=== PATIENT | female | born 1940 | race Caucasian/White ===

== ENCOUNTER → 2016-11-15 | Outpatient (CLI) | payer MEDICARE ==
[~2016-11-15] MED LIST: ALBU17IN INH; ASPI81TA85 PO; IBUP200C PO; LORA1TAB12 PO; NEXI40CA PO; OPDI1INJ IV; PERCOCET PO; SERT25TA85 PO; SYMB16INH INH; SYMB80AE INH
--- NOTE | 2016-11-15 10:56 | REP ---
Chest x-ray: Two views. History: Abnormal lung findings. Panlobular emphysema. Comparison chest x-ray October 13, 2016. Findings: Post thoracotomy changes are noted on the right including some pleuroparenchymal fibrosis and a suture line in the right mid lung zone. There is blunting of the right lateral pleural angle. Hyperinflation of the lungs again seen overall with increase in the AP diameter of the chest. There is no evidence of pneumothorax or hydrothorax on the left. Heart is not felt to be enlarged. The aorta is calcific and tortuous. Pulmonary vasculature is not increased. There are degenerative changes in the thoracic spine. Impression: Hyperinflation. Post thoracotomy changes on the right. Otherwise no acute disease. Signed by Jose M Allen MD 11/15/2016 01:41 P
== END ==
LOC: M SMT 10:11
PROVIDERS: ATTEND Thoracic Surgery (Cardiothoracic Vascular Surgery)
DX: Z01.818 Encounter for other preprocedural examination (principal); R91.8 Other nonspecific abnormal finding of lung field; J43.1 Panlobular emphysema; Z85.118 Personal history of other malignant neoplasm of bronchus and lung; Z98.890 Other specified postprocedural states; R22.2 Localized swelling, mass and lump, trunk

== ENCOUNTER → 2016-11-15 | Outpatient (CLI) | payer MEDICARE ==
[2016-11-15 13:21] LABS: ABG BASE EXCESS -0.2 (-2.0-2.0); ABG HCO3 23.8 MEQ/L (22.0-26.0); ABG PARTIAL PRESSURE CO2 36.7 mmHg (35.0-45.0); ABG PARTIAL PRESSURE O2 85.5 mmHg (75.0-100.0); ABG STANDARD HCO3 24.3 MEQ/L (22.0-26.0); ABG TOTAL CO2 24.9 MEQ/L (23.0-31.0); ABG pH (ARTERIAL) 7.429 UNITS (7.350-7.450)
[2016-11-15 14:17] LABS: MEAN CORPUSCULAR HEMOGLOBIN 28.4 pg (27.0-33.0); MEAN CORPUSCULAR HGB CONC 32.2 g/dl (32.0-36.5); MEAN CORPUSCULAR VOLUME 88.2 fl (80.0-96.0); RED CELL DISTRIBUTION WIDTH 13.9 % (11.5-14.5); WHITE BLOOD COUNT 6.3 K/mm3 (4.0-10.0)
[2016-11-15 14:18] LABS: BACTERIA, URINE NONE SEEN; HYALINE CAST, URINE NONE SEEN /lpf (0-1); MICROSCOPIC EXAM PERFORMED; MICROSCOPIC INDICATED? MAN YES (NO); RBC, URINE 0-1 /hpf (0-3); SQUAMOUS EPITHELIAL CELL URINE SMALL AMOUNT /hpf (SMALL AMT); WBC, URINE 0-1 /hpf (0-3)
[2016-11-15 14:21] LABS: INR 0.88
[2016-11-15 14:46] LABS: ALBUMIN 3.5 GM/DL (3.2-5.2); ALBUMIN/GLOBULIN RATIO 1.13 (1.00-1.93); ALKALINE PHOSPHATASE 119 U/L (45-117); ALT/SGPT 25 U/L (12-78); ANION GAP 9 MEQ/L (8-16); AST/SGOT 13 U/L (15-37); BILIRUBIN,TOTAL 0.6 MG/DL (0.2-1.0); BLOOD UREA NITROGEN 14 MG/DL (7-18); CALCIUM LEVEL 8.6 MG/DL (8.8-10.2); CARBON DIOXIDE LEVEL 28 MEQ/L (21-32); CHLORIDE LEVEL 106 MEQ/L (98-107); CREATININE FOR GFR 0.76 MG/DL (0.55-1.02); GLOMERULAR FILTRATION RATE > 60.0 (>39); GLUCOSE, FASTING 83 MG/DL (83-110); SODIUM LEVEL 143 MEQ/L (136-145); TOTAL PROTEIN 6.6 GM/DL (6.4-8.2)
== END ==
LOC: M LAB 12:54
PROVIDERS: ATTEND Thoracic Surgery (Cardiothoracic Vascular Surgery)
DX: Z01.818 Encounter for other preprocedural examination (principal); R22.2 Localized swelling, mass and lump, trunk

== ENCOUNTER 2016-11-22 10:55 | Inpatient (IN) | payer MEDICARE ==
[~2016-11-22] VITALS: Ht 162.6 cm; Wt 69.9 kg
[2016-11-22] VITALS (31 sets, daily range): BP systolic 87–119; BP diastolic 50–68
[~2016-11-22 10:55] MED LIST changes: +BUPIVACAINE HCL 0.25% 30 ML VIAL As Ordered ONE; +BUPIVACAINE LIPOSOME/PF 1.3% 20ML (266MG/20ML) VIAL (EXPAREL) As Ordered ONE
[2016-11-22] MEDS ORDERED: ceFAZolin SOD 1 GM in D5W MINI-BAG PLUS 50 ML IV ONE (11:15)
[2016-11-22] MEDS ORDERED: MUPIROCIN 2% OINT 22 GM TUBE TOP SCH (11:15)
[2016-11-22] MEDS ORDERED: LR 1,000 ML IV SCH ×2 (11:15→16:30)
[2016-11-22] MEDS ORDERED: ROCURONIUM BROMIDE 50 MG/5 ML VIAL As Ordered ONE ×2 (11:49→14:43)
[2016-11-22] MEDS ORDERED: LIDOCAINE 2% INJ 100 MG/5 ML SDV (FOR ANES.) As Ordered ONE (11:49)
[2016-11-22] MEDS ORDERED: PROPOFOL 200 MG/20 ML VIAL As Ordered ONE (11:49)
[2016-11-22] MEDS ORDERED: fentaNYL 250 MCG/5 ML INJECTION (J3010) As Ordered ONE (11:50)
[2016-11-22] MEDS ORDERED: MIDAZOLAM INJ 2 MG/2 ML VIAL (J2250) As Ordered ONE ×5 (11:50→20:46)
--- NOTE | 2016-11-22 11:51 | REP ---
CHEST X-RAY PA AND LATERAL: 11/22/2016 CLINICAL HISTORY: Left upper lobe lesion, planning excision. COMPARISON: 11/15/2016, 10/13/2016 chest x-ray, CT chest 08/23/2016. Lungs are quite hyperinflated. Chronic changes are noted with the fibrotic changes, COPD with bullous emphysematous changes mid and upper lung zones, all stable. Some pleural fibrotic change are heavier in the right lateral base on the frontal view. Increased density overlying the anterior clear space partially silhouetted by the ascending aorta corresponding to the location of spiculated lesion on the CT on 08/23/2016. No effusion or definite pneumothorax. Heart, mediastinal and hilar contours along with aorta are all unchanged. No visible pneumothorax, pneumomediastinum. Signed by Raymon Young MD 11/22/2016 02:26 P
[2016-11-22] MEDS ORDERED: BUPIVACAINE HCL 0.25% 30 ML VIAL As Ordered ONE (11:57)
[2016-11-22] MEDS ORDERED: fentaNYL 100 MCG/2 ML INJECTION (J3010) As Ordered ONE (12:38)
[2016-11-22] MEDS ORDERED: MIDAZOLAM INJ 2 MG/2 ML VIAL (J2250) IV ONE ×2 (13:15→21:00)
[2016-11-22] MEDS ORDERED: fentaNYL 100 MCG/2 ML INJECTION (J3010) IV ONE (13:15)
[2016-11-22] MEDS ORDERED: LIDOCAINE 1% MDV 20ML VIAL ONE (13:17)
[2016-11-22] MEDS ORDERED: ePHEDrine SULFATE 25 MG/5 ML(5MG/ML) SYRINGE As Ordered ONE (14:29)
[2016-11-22] MEDS ORDERED: GLYCOPYRROLATE INJ 0.2 MG/ML 2 ML VIAL As Ordered ONE (15:17)
[2016-11-22] MEDS ORDERED: ONDANSETRON 4MG/2ML VIAL (J2405) As Ordered ONE (15:17)
[2016-11-22] MEDS ORDERED: NEOSTIGMINE 1MG/ML 5 ML SYRINGE (J2710) As Ordered ONE (15:17)
[2016-11-22] MEDS ORDERED: BUPIVACAINE HCL 0.5% 30 ML VIAL XX ONE (15:32)
[2016-11-22] MEDS ORDERED: MUPIROCIN 2% OINT 22 GM TUBE XX ONE (15:32)
[2016-11-22] MEDS ORDERED: BUPIVACAINE LIPOSOME/PF 1.3% 20ML (266MG/20ML) VIAL (EXPAREL) XX ONE (15:32)
[2016-11-22] MEDS ORDERED: KETOROLAC 30 MG/ML VIAL (J1885) As Ordered ONE (15:55)
[2016-11-22] MEDS ORDERED: FENTANYL 2MCG/ML BUPIVACAINE 0.0625% NACL 250ML CADD As Ordered ONE (15:56)
[2016-11-22] MEDS ORDERED: NORCO, ANEXSIA 5/325MG TABLET (HYDROcodone/ACETAMINOPHEN) PO PRN (16:00)
[2016-11-22] MEDS ORDERED: LEVALBUTEROL 1.25 MG/0.5 ML CONCENTRATE NEB NEB PRN (16:00)
[2016-11-22] MEDS ORDERED: PERCOCET 5MG/325MG TAB PO PRN ×2 (16:00)
[2016-11-22] MEDS ORDERED: ONDANSETRON 4MG/2ML VIAL (J2405) IV PRN ×3 (16:00→16:30)
[2016-11-22] MEDS ORDERED: BISACODYL 10 MG SUPP PR PRN (16:00)
[2016-11-22] MEDS ORDERED: NALOXONE INJ 0.4 MG/1 ML VIAL (J2310) IV PRN (16:15)
[2016-11-22] MEDS ORDERED: METOCLOPRAMIDE INJ 10MG/2ML VIAL (J2765) IV PRN (16:15)
[2016-11-22] MEDS ORDERED: diphenhydrAMINE INJ 50MG/ML VIAL (J1200) IV PRN (16:15)
[2016-11-22] MEDS ORDERED: EPIDURAL/PCA KEYS XX PRN (16:15)
[2016-11-22] MEDS ORDERED: WALLBOXKEY XX PRN (16:15)
[2016-11-22] MEDS ORDERED: fentaNYL 100 MCG/2 ML INJECTION (J3010) IV PRN (16:30)
[2016-11-22 16:37] LABS: ABG BASE EXCESS -1.9 (-2.0-2.0); ABG HCO3 25.4 MEQ/L (22.0-26.0); ABG PARTIAL PRESSURE CO2 53.4 mmHg (35.0-45.0); ABG PARTIAL PRESSURE O2 109.7 mmHg (75.0-100.0); ABG STANDARD HCO3 22.9 MEQ/L (22.0-26.0); ABG pH (ARTERIAL) 7.295 UNITS (7.350-7.450)
[2016-11-22 16:47] LABS: BASO # 0.1 K/mm3 (0.0-0.2); BASO % 1.2 % (0.0-1.0); EOS # 0.1 K/mm3 (0.0-0.50); EOS % 1.2 % (0.0-3.0); LARGE UNSTAINED CELL # 0.1 K/mm3 (0.0-0.4); LARGE UNSTAINED CELL % 1.1 % (0.0-4.0); LYMPH # 0.7 K/mm3 (1.5-4.5); LYMPH % 6.1 % (24.0-44.0); MEAN CORPUSCULAR HEMOGLOBIN 29.2 pg (27.0-33.0); MEAN CORPUSCULAR HGB CONC 33.9 g/dl (32.0-36.5); MONO # 0.4 K/mm3 (0.0-0.8); NEUTROPHILS # 8.2 K/mm3 (1.8-7.7); NEUTROPHILS % 86.4 % (36.0-66.0); PLATELET COUNT, AUTOMATED 202 k/mm3 (150-450); RED CELL DISTRIBUTION WIDTH 13.6 % (11.5-14.5); WHITE BLOOD COUNT 9.4 K/mm3 (4.0-10.0)
--- NOTE | 2016-11-22 16:59 | REP ---
Portable chest x-ray: Two portably obtained semi-erect AP views: History: Status-post left upper lobe wedge resection for adenocarcinoma. Comparison is made with today's radiographs preop. Findings: Left-sided chest tube is visible at the apex. The left lung is otherwise well inflated. There is some pleuroparenchymal fibrosis or atelectasis in the right base. This is more pronounced. There is no evidence of pneumothorax or hydrothorax. There is a skin fold on one of the views of the chest. Oxygen tubing and EKG monitoring electrodes are seen. An epidural catheter is noted. Impression: Atelectasis and pleuroparenchymal scarring right base. Left chest tube noted. Signed by Jose M Allen MD 11/22/2016 05:02 P
[2016-11-22] MEDS ORDERED: KETOROLAC 30 MG/ML VIAL (J1885) IV ONE (17:00)
[2016-11-22 17:11] LABS: ANION GAP 8 MEQ/L (8-16); BLOOD UREA NITROGEN 19 MG/DL (7-18); CALCIUM LEVEL 8.4 MG/DL (8.8-10.2); CARBON DIOXIDE LEVEL 27 MEQ/L (21-32); CHLORIDE LEVEL 109 MEQ/L (98-107); CREATININE FOR GFR 0.76 MG/DL (0.55-1.02); GLOMERULAR FILTRATION RATE > 60.0 (>39); GLUCOSE, FASTING 102 MG/DL (83-110); POTASSIUM SERUM 3.9 MEQ/L (3.5-5.1); SODIUM LEVEL 144 MEQ/L (136-145)
[2016-11-22] MEDS: KCL 20MEQ IN D5/NS 1000ML 1,000 ML IV SCH (18:21)
--- NOTE | 2016-11-22 18:28 | RO ---
DATE OF PROCEDURE: 11/22/2016 PREPROCEDURE DIAGNOSIS: Left upper lobe lung lesion. POSTPROCEDURE DIAGNOSIS: Adenocarcinoma. PROCEDURE: Video-assisted thoracoscopic surgery (VATS) wedge resection, bronchoscopy and five-level rib block and pneumonolysis (lysis of adhesions). SURGEON: Dr. Emil Rosen EMPLOYMENT ATTORNEY: ANESTHESIA: FINDINGS: The lung was essentially adherent to the chest wall, and these were all taken down by both sharp and blunt dissection. Once taking down all the adhesions, the lesion was barely visible on the surface but could be felt with the probing peanut. This was wedged out and the frozen section was returned as adenocarcinoma and the margins were clear. Bronchoscopy revealed a normal branching tracheobronchial tree. The right lower lobe was missing secondary to the lobectomy a few years ago. The right middle lobe bronchus take-off was rotated approximately 90 degrees from where it would be normally. There were no endobronchial lesions seen. There were secretions, and these were suction aspirated so that each segment and subsegment could be thoroughly inspected. DESCRIPTION OF PROCEDURE: Under satisfactory single lumen tube endotracheal intubation, the bronchoscope was placed in the tracheobronchial tree. The above findings were noted. Each bronchial segment and subsegment was thoroughly inspected and found to be free of endobronchial disease. The patient was then intubated with a double lumen tube and the position again checked with the bronchoscope. The patient was then turned into the right lateral decubitus position and sterilely prepped and draped in the usual fashion. Patient had previously been marked and the first VATS incision was made in the posterior axillary line. The scope was inserted and numerous adhesions were noted. Another 5 mm port was placed in the anterior axillary line and one in the mid axillary line. Through a combination of changing ports and approaches, the adhesions could be taken down with sharp dissection along with electrocautery. After taking down the adhesions, the lung could then be manipulated. The lesion was found anteriorly and medially. It could not be well seen, and surprisingly, it was not adherent to the mediastinum at that point. I could feel an area of hardness with both the peanut dissector and the grasping forceps. This was, therefore, chosen as the site of resection. A very generous wedge resection was then undertaken of the left upper lobe medial segments by use of a BAILEE Richton 4.8 stapler. It required three firings of the stapler to remove the lesion. The lesion was placed in an Endo Catch bag and was withdrawn through the 12 mm port, which had been placed in between the posterior and mid axillary lines. This incision had to be extended in order to remove the specimen. The specimen was sent to the lab and I accompanied it. The margins were clear, and it was noted to be adenocarcinoma with surrounding inflammatory granulomatous disease. A five-level rib block consisting of % Marcaine along with Exparel was infiltrated beneath each rib. It was also infiltrated into the extrathoracic musculature. Ports were removed and the lung was reinflated under direct vision. The larger incision, 12 mm port was closed with running #0 Vicryl suture for the extrathoracic muscles, running #3-0 Vicryl suture for the subcu tissue and running #4-0 Monocryl subcuticular for the skin. Smaller incisions were closed with running #3-0 Vicryl suture for the subcutaneous tissue and running #4-0 Monocryl suture for the skin. The mid axillary line incision was used to place a chest tube, #24 angled. The patient tolerated the procedure well and left the operating room in satisfactory condition for the recovery room. Edited 11/22/2016 [facility]
--- NOTE | 2016-11-22 19:25 | ECGEPIP ---
Stationary ECG Study [facility] Test Date: 2016-11-22 Pat Name: VIDYA VALENTINE Department: Room: [place] [address] Gender: F Office Services Manager: RIVKA DIAZ : 1940 Requested By: Emil Cohen Order Number: [id number] Reading MD: Julius Yañez Measurements Intervals [place] Rate: 62 P: 5 GA: 145 QRS: -57 QRSD: 96 T: 26 QT: 434 QTc: 442 Interpretive Statements SINUS RHYTHM WITH SINUS ARRHYTHMIA LEFT ANTERIOR FASCICULAR BLOCK SIMILAR 03/26/13 Electronically Signed On 11-22-2016 19:25:30 EST by Julius Yañez
[2016-11-22] MEDS: SYMBICORT 160/4.5MCG INHALER 6GM INH SCH (19:57)
[2016-11-22] MEDS: LEVALBUTEROL 1.25 MG/0.5 ML CONCENTRATE NEB NEB SCH (20:00)
[2016-11-22] MEDS ORDERED: FLUMAZENIL 0.5 MG/5 ML VIAL As Ordered ONE (20:47)
[2016-11-22] MEDS ORDERED: LIDOCAINE 1% MDV 20ML VIAL As Ordered ONE (20:47)
[2016-11-22] MEDS ORDERED: LIDOCAINE 1% MDV 20ML VIAL SC ONE (21:00)
[2016-11-22] MEDS: FENTANYL/BUPIVACAINE/NACL CADD 250 ML EPIDURAL SCH (21:00)
[2016-11-22] MEDS ORDERED: FLUMAZENIL 0.5 MG/5 ML VIAL IV ONE (21:50)
--- NOTE | 2016-11-22 22:11 | RO ---
PROCEDURE AND INTERIM PROGRESS NOTE DATE: 11/22/2016 I was called this evening around 9 o'clock, informing me that the patient's chest tube had fallen out. I, therefore, instructed the patient be taken straight to the intensive care unit (ICU) and a chest x-ray to be taken on my way in from [place]. Upon arriving in the ICU, the patient was ostensibly stable but her chest x-ray showed subcutaneous emphysema and separation of the lung from the chest wall. As she is only a few hours status post a video-assisted thoracoscopic surgery (VATS) wedge resection, she has severe chronic obstructive pulmonary disease (COPD), therefore, placed a chest tube under conscious sedation. PREPROCEDURE DIAGNOSIS: Pneumothorax. POSTPROCEDURE DIAGNOSIS: Pneumothorax. PROCEDURE: Emergent insertion of left anterior chest tube. SURGEON: Dr. Emil Rosen FREIGHT AIR BRAKE FITTER: ANESTHESIA: DESCRIPTION OF PROCEDURE: Under satisfactory moderate sedation achieved with 3 mg of Versed, the patient's anterior chest was prepped and draped in the usual sterile fashion. The subcutaneous tissue, skin and pleura over the second rib were infiltrated with 1% Xylocaine. Incision was made and a tunnel was created in the chest without difficulty. A #20 chest tube was placed without difficulty. A large gush of air emanated from the chest as I made the tunnel into the chest. Chest tube was secured to the chest wall with a #2 Tevdek suture and connected to the Pleur-evac. The patient tolerated the procedure well and chest x-ray showed the lung to be fully expanded to the chest wall.
[2016-11-22] MEDS: DOCUSATE SODIUM 100 MG CAP PO SCH (22:55)
[2016-11-22] MEDS: HEPARIN SOD (PORCINE) 5000 UNITS/ML VIAL SC SCH (22:55)
[2016-11-22] MEDS: KETOROLAC 30 MG/ML VIAL (J1885) IV SCH (22:58)
[2016-11-23] VITALS (11 sets, daily range): BP systolic 92–122; BP diastolic 52–65
[2016-11-23] MEDS: LEVALBUTEROL 1.25 MG/0.5 ML CONCENTRATE NEB NEB SCH ×4 (02:00→20:00)
[2016-11-23] MEDS: KETOROLAC 30 MG/ML VIAL (J1885) IV SCH ×4 (04:21→21:45)
[2016-11-23] MEDS: KCL 20MEQ IN D5/NS 1000ML 1,000 ML IV SCH (05:25)
[2016-11-23 05:27] LABS: ANION GAP 5 MEQ/L (8-16); BLOOD UREA NITROGEN 18 MG/DL (7-18); CALCIUM LEVEL 7.8 MG/DL (8.8-10.2); CARBON DIOXIDE LEVEL 29 MEQ/L (21-32); CHLORIDE LEVEL 110 MEQ/L (98-107); CREATININE FOR GFR 0.79 MG/DL (0.55-1.02); GLOMERULAR FILTRATION RATE > 60.0 (>39); GLUCOSE, FASTING 95 MG/DL (83-110); POTASSIUM SERUM 4.1 MEQ/L (3.5-5.1); SODIUM LEVEL 144 MEQ/L (136-145)
[2016-11-23 05:36] LABS: BASO % 0.3 % (0.0-1.0); EOS # 0.1 K/mm3 (0.0-0.50); EOS % 1.1 % (0.0-3.0); LARGE UNSTAINED CELL # 0.1 K/mm3 (0.0-0.4); LARGE UNSTAINED CELL % 1.7 % (0.0-4.0); LYMPH # 0.8 K/mm3 (1.5-4.5); LYMPH % 14.3 % (24.0-44.0); MEAN CORPUSCULAR HEMOGLOBIN 28.3 pg (27.0-33.0); MEAN CORPUSCULAR HGB CONC 31.6 g/dl (32.0-36.5); MEAN CORPUSCULAR VOLUME 89.5 fl (80.0-96.0); MONO # 0.4 K/mm3 (0.0-0.8); MONO % 6.1 % (0.0-5.0); NEUTROPHILS # 4.5 K/mm3 (1.8-7.7); NEUTROPHILS % 76.6 % (36.0-66.0); PLATELET COUNT, AUTOMATED 189 k/mm3 (150-450); RED CELL DISTRIBUTION WIDTH 12.8 % (11.5-14.5); WHITE BLOOD COUNT 5.8 K/mm3 (4.0-10.0)
[2016-11-23 05:46] LABS: ABG pH (ARTERIAL) 7.375 UNITS (7.350-7.450)
[2016-11-23 05:47] LABS: ABG HCO3 25.4 MEQ/L (22.0-26.0); ABG PARTIAL PRESSURE CO2 44.4 mmHg (35.0-45.0); ABG PARTIAL PRESSURE O2 90.3 mmHg (75.0-100.0); ABG STANDARD HCO3 24.5 MEQ/L (22.0-26.0); ABG TOTAL CO2 26.7 MEQ/L (23.0-31.0)
--- NOTE | 2016-11-23 08:15 | REP ---
Portable chest, 11/22/2016, 08:47 p.m.: Comparison is a portable chest from 04:26 p.m. earlier today. The left chest tube has been removed. Subcutaneous emphysema is noted along the left lateral chest wall. There is a small left apical pneumothorax. The remainder of the left lung is clear. Increased radiodensity is again noted at the periphery of the right lung, possibly artifact from superimposed right arm. The cardiac size normal. Jazmín and mediastinum unremarkable. Epidural catheter is again noted. Half Signed by Alfred Ibarra MD 11/23/2016 08:06 A
--- NOTE | 2016-11-23 08:17 | REP ---
Portable chest, 11/22/2016, 09:20 p.m., single AP view, the patient semi upright: Comparison is from 08:47 p.m. earlier this same date. There is a new left chest tube with the tip in the apex of the left hemithorax. The small left apical pneumothorax on the comparison study is no longer present. The subcutaneous emphysema along the left lateral chest wall has decreased. There is a focal subsegmental infiltrate in the right costophrenic angle. Right lung is otherwise unremarkable. Cardiac size is normal. Epidural catheter is again noted. Signed by Alfred Ibarra MD 11/23/2016 08:07 A
--- NOTE | 2016-11-23 08:18 | REP ---
Chest PA and lateral views: Comparison is a portable chest of 09:16 p.m. on 2016. Left chest tube is again with the tip in the apex of the left hemithorax, unchanged. There is no pneumothorax. The left costophrenic angle appears effaced, however, suspect this is superimposition rib artifact. Left lung is otherwise unremarkable. There is a focal subsegmental infiltrate inferolaterally on the right, unchanged. The cardiac size normal. Jazmín and mediastinum unremarkable. Epidural catheter is again noted. Signed by Alfred Ibarra MD 11/23/2016 08:09 A
[2016-11-23] MEDS: SYMBICORT 160/4.5MCG INHALER 6GM INH SCH ×2 (08:42→20:53)
[2016-11-23] MEDS ORDERED: PANTOPRAZOLE 40MG TAB (PROTONIX) PO SCH (09:00)
[2016-11-23] MEDS: SERTRALINE HCL 25 MG TABLET PO SCH (09:36)
[2016-11-23] MEDS: ACETAMINOPHEN TAB 650MG DOSE (2X325MG) PO PRN ×2 (09:36→16:27)
[2016-11-23] MEDS: HEPARIN SOD (PORCINE) 5000 UNITS/ML VIAL SC SCH ×2 (09:36→21:45)
[2016-11-23] MEDS: PANTOPRAZOLE 40MG INJ (PROTONIX) (C9113) IV SCH (09:36)
[2016-11-23] MEDS: MOM 30ML SUSPENSION UDC PO SCH (09:36)
[2016-11-23] MEDS: DOCUSATE SODIUM 100 MG CAP PO SCH ×2 (09:37→21:45)
[2016-11-23] MEDS: ASPIRIN 81 MG ENTERIC TAB PO SCH (09:37)
--- NOTE | 2016-11-23 11:28 | IPN ---
DATE: 11/23/2016 This is now the first postoperative day for Mrs. Reed. As noted in last night's interim progress note her chest tube was pulled out. I am not sure of the exact reason, but on inspecting the wound it shows that the suture was out of the skin and had been pulled out completely. Another chest tube was placed as noted yesterday. Today, she is doing quite well. She is almost pain free. She is breathing well. Her vital signs show a T-max of 100.8 with a heart rate that ranges between 75 and 63 in a sinus rhythm, a respiratory rate of 18 to 16 without the use of accessory muscles, who is 98% to 97% saturated on 2 liters nasal cannula and whose blood pressure is ranging between 97/65 to 105/56. Her intake and output the past 24 hours has been recorded as 966 in and 495 out for a positivity of 471 mL. She has put out 25 mL from the chest tube and her weight today is 69.2 kg compared to 68 kg yesterday. There is no air leak today. On physical examination, she has equal breath sounds on either side. There are a couple of fine crackles during inspiration. Percussion note is full to the diaphragm. Cardiac Exam: Without murmurs, clicks, gallops, or rubs. I cannot feel her PMI. S1, S2 are normal. Abdomen: Soft. Nontender. Bowel sounds are positive. There is no hepatomegaly. No costovertebral angle (CVA) tenderness. Extremities: Show no pretibial edema. No calf tenderness. No differential swelling of the upper extremities. Skin: Warm, dry and perfused. Without cyanosis or mottling, including that of the nail beds and knees. Neck: Supple. There is no jugular venous distention. No subcutaneous emphysema. Trachea is midline. Mouth: Shows her mucous membranes to be pink and moist. Lips and commissures are without lesions. There is no thrush. Eyes: Show her pupils to be equal and reactive. Extraocular movements intact. Sclerae nonicteric. Neurologic: Shows II-XII intact along with gross motor and gross sensation intact. Gait is also intact. Psychiatric shows her to be awake, alert, and oriented times three with appropriate mood and affect and conversational. White count today is 5.8 with hemoglobin and hematocrit of 11.3 and 35.6 and a platelet count of 189. Differential shows 76% neutrophils, 14% lymphocytes, 6% monocytes. There are no immature forms and no toxic granulations. Her electrolytes are normal with a BUN and creatinine of 18 and 0.79 and glucose of 95 and a calcium of 7.8. Blood gases this morning show a pH of 7.35, pCO2 of 44 and pO2 of 90 on the above oxygen. Base excess is 0. Her chest x-ray today shows her lung fully expanded to the chest wall. The anterior chest tube was placed yesterday and is in good position. There is no pneumothorax. The subcutaneous emphysema seen yesterday on yesterday's chest x-ray is dissipating. There is a slight blunting of the left costophrenic angle. There also looks to be a possible infiltrative pattern on the right lower lobe. There are no posterior infiltrates however on the lateral chest x-ray. I have gone over the slides with Dr. Reyes, pathology. It looks as though this could be moderately differentiated adenocarcinoma. All the margins are clear. I have asked her to do some more sections on the bronchiectatic portions of the specimen. It looks as though the specimen was excised in toto. IMPRESSION: 1. Postoperative day #1 status post VATS wedge resection right upper lobe. 2. Adenocarcinoma well differentiated, clinically T1a. 3. Chronic obstructive pulmonary disease. 4. Status post right lower lobe adenocarcinoma T2b, resected in 2012. 5. Anemia secondary to hemodilution. 6. Prior tobacco abuse, now reformed. PLAN AND DISCUSSION: I will continue her chest tube today on suction. Will transfer back to the progressive care unit (PCU) today. Last night's incident will probably push us back one postoperative day. Will continue her on of course the antithrombotic heparin.
[2016-11-23] MEDS: FENTANYL/BUPIVACAINE/NACL CADD 250 ML EPIDURAL SCH (16:47)
[2016-11-24] VITALS (7 sets, daily range): BP systolic 104–143; BP diastolic 56–70; O2SAT 95
[2016-11-24] MEDS: LEVALBUTEROL 1.25 MG/0.5 ML CONCENTRATE NEB NEB SCH ×4 (02:14→20:00)
[2016-11-24] MEDS: ACETAMINOPHEN TAB 650MG DOSE (2X325MG) PO PRN ×2 (04:17→19:19)
[2016-11-24] MEDS: KETOROLAC 30 MG/ML VIAL (J1885) IV SCH ×4 (04:18→21:46)
[2016-11-24 05:27] LABS: BASO % 0.3 % (0.0-1.0); EOS # 0.2 K/mm3 (0.0-0.50); EOS % 2.8 % (0.0-3.0); LARGE UNSTAINED CELL # 0.1 K/mm3 (0.0-0.4); LARGE UNSTAINED CELL % 1.2 % (0.0-4.0); LYMPH # 0.6 K/mm3 (1.5-4.5); LYMPH % 10.2 % (24.0-44.0); MEAN CORPUSCULAR HEMOGLOBIN 28.8 pg (27.0-33.0); MEAN CORPUSCULAR HGB CONC 32.9 g/dl (32.0-36.5); MEAN CORPUSCULAR VOLUME 87.5 fl (80.0-96.0); MONO # 0.3 K/mm3 (0.0-0.8); MONO % 4.9 % (0.0-5.0); NEUTROPHILS # 4.6 K/mm3 (1.8-7.7); NEUTROPHILS % 80.5 % (36.0-66.0); PLATELET COUNT, AUTOMATED 159 k/mm3 (150-450); RED CELL DISTRIBUTION WIDTH 12.7 % (11.5-14.5); WHITE BLOOD COUNT 5.7 K/mm3 (4.0-10.0)
[2016-11-24 05:38] LABS: ANION GAP 6 MEQ/L (8-16); BLOOD UREA NITROGEN 14 MG/DL (7-18); CALCIUM LEVEL 7.8 MG/DL (8.8-10.2); CARBON DIOXIDE LEVEL 27 MEQ/L (21-32); CHLORIDE LEVEL 106 MEQ/L (98-107); CREATININE FOR GFR 0.76 MG/DL (0.55-1.02); GLOMERULAR FILTRATION RATE > 60.0 (>39); GLUCOSE, FASTING 100 MG/DL (83-110); POTASSIUM SERUM 3.9 MEQ/L (3.5-5.1); SODIUM LEVEL 139 MEQ/L (136-145)
[2016-11-24] MEDS: SYMBICORT 160/4.5MCG INHALER 6GM INH SCH ×2 (08:27→21:01)
--- NOTE | 2016-11-24 08:29 | REP ---
PA and lateral chest: Comparison is 11/23/2016. The left chest tube is unchanged. There is no pneumothorax. The left costophrenic angle again appears effaced, however, likely artifact from the supine position. The left lung is otherwise clear. A subsegmental infiltrate is again noted inferolaterally on the right. The right lung is otherwise clear. Cardiac size is normal. The alfred, mediastinum are unremarkable. The epidural catheter is again noted. Impression: No interval change. Signed by Alfred Ibarra MD 11/24/2016 08:21 A
[2016-11-24] MEDS: PANTOPRAZOLE 40MG INJ (PROTONIX) (C9113) IV SCH (09:03)
[2016-11-24] MEDS: DOCUSATE SODIUM 100 MG CAP PO SCH ×2 (09:03→20:25)
[2016-11-24] MEDS: ASPIRIN 81 MG ENTERIC TAB PO SCH (09:03)
[2016-11-24] MEDS: SERTRALINE HCL 25 MG TABLET PO SCH (09:03)
[2016-11-24] MEDS: MOM 30ML SUSPENSION UDC PO SCH (09:03)
[2016-11-24] MEDS: HEPARIN SOD (PORCINE) 5000 UNITS/ML VIAL SC SCH ×2 (09:04→20:25)
--- NOTE | 2016-11-24 12:38 | IPN ---
DATE: 11/24/2016 Mrs. Reed has had a stable 24 hours. She is not complaining of any pain. She has some numbness referable to the intercostal port placement in the 6th intercostal space. Her vital signs show a maximum temperature (t-max) of 100.8 with a heart rate that ranges between 79 and 84 in a sinus rhythm, respiratory rate of 18 to 60 without the use of accessory muscles who is 94 to 95% saturated on room air and whose blood pressure is ranging between 100/53 to 118/56. Her intake and output for the past 24 hours has been recorded as 1443 in and 1278 out for a positivity of 165 mL. She has put 68 mL from the chest tube. She weighs 40.1 kg compared to 69.2 kg yesterday. PHYSICAL EXAMINATION: LUNGS: Show equal breath sounds on either side. Percussion note is full to the diaphragm. I hear occasional coarse rhonchi that clear with coughing. CARDIAC EXAM: Without murmurs, clicks, gallops, or rubs. I cannot feel her PMI. S1, S2 are normal. ABDOMEN: Soft. Nontender. Bowel sounds are positive. There is no hepatomegaly. No costovertebral angle (CVA) tenderness. EXTREMITIES: Show no pretibial edema. No calf tenderness. No differential swelling of the upper extremities. SKIN: Warm, dry and perfused. Without cyanosis or mottling, including that of the nail beds and knees. NECK: Supple. There is no jugular venous distention. No subcutaneous emphysema. Trachea is midline. MOUTH: Shows her mucous membranes to be pink and moist. Lips and commissures are without lesions. There is no thrush. EYES: Show her pupils to be equal and reactive. Extraocular movements intact. Sclerae nonicteric. NEUROLOGIC: Shows II-XII intact along with gross motor and gross sensation intact. Gait is also intact. PSYCHIATRIC: Shows her to be awake, alert, and oriented times three with appropriate mood and affect and conversational. Her white count today is 5.6 with a hemoglobin and hematocrit of 11.3 and 34.5. Platelet count is 159. Differential shows 80% neutrophils, 10% lymphocytes, 4% monocytes. There are no immature forms and no toxic granulations. Her electrolytes are normal with a BUN and creatinine of 14 and 0.76. Glucose 100 and a calcium of 7.8. Her chest x-ray today shows her lung fully expanded to the chest wall. There is a small pleural effusion in the left lower hemithorax. This is confirmed on the lateral view. There are no other infiltrates posteriorly on the lateral view. IMPRESSION: 1. Postoperative day #2 status post left upper lobe wedge resection. 2. Adenocarcinoma well differentiated, clinically T1a. 3. Chronic obstructive pulmonary disease. 4. Status post right lower lobe adenocarcinoma T2b, resected in 2012. 5. Status post adrenal metastases treated with chemotherapy. 6. Anemia secondary to hemodilution, improving. 7. Prior tobacco abuse. PLAN AND DISCUSSION: I will discontinue her chest tube from suction today. If all goes well and her lung remains up, I will remove her chest tubes tomorrow. Because of the fact that the new chest tube is now anterior, she has a small pleural effusion, which I suspect she will be able to take care of by herself.
[2016-11-24] MEDS: FENTANYL/BUPIVACAINE/NACL CADD 250 ML EPIDURAL SCH (16:37)
[2016-11-25] VITALS: BP 122/56
[2016-11-25] MEDS: LEVALBUTEROL 1.25 MG/0.5 ML CONCENTRATE NEB NEB SCH ×4 (01:31→20:00)
[2016-11-25 04:00] VITALS: BP 149/66
[2016-11-25] MEDS: KETOROLAC 30 MG/ML VIAL (J1885) IV SCH ×4 (04:00→22:09)
[2016-11-25 05:11] LABS: BASO % 0.4 % (0.0-1.0); EOS # 0.2 K/mm3 (0.0-0.50); EOS % 4.5 % (0.0-3.0); LARGE UNSTAINED CELL # 0.1 K/mm3 (0.0-0.4); LARGE UNSTAINED CELL % 1.9 % (0.0-4.0); LYMPH # 0.8 K/mm3 (1.5-4.5); LYMPH % 16.3 % (24.0-44.0); MEAN CORPUSCULAR HEMOGLOBIN 28.8 pg (27.0-33.0); MEAN CORPUSCULAR HGB CONC 33.3 g/dl (32.0-36.5); MEAN CORPUSCULAR VOLUME 86.4 fl (80.0-96.0); MONO # 0.3 K/mm3 (0.0-0.8); MONO % 5.8 % (0.0-5.0); NEUTROPHILS # 3.4 K/mm3 (1.8-7.7); NEUTROPHILS % 71.2 % (36.0-66.0); PLATELET COUNT, AUTOMATED 162 k/mm3 (150-450); RED CELL DISTRIBUTION WIDTH 12.4 % (11.5-14.5); WHITE BLOOD COUNT 4.8 K/mm3 (4.0-10.0)
[2016-11-25 05:20] LABS: ANION GAP 7 MEQ/L (8-16); BLOOD UREA NITROGEN 7 MG/DL (7-18); CALCIUM LEVEL 8.1 MG/DL (8.8-10.2); CARBON DIOXIDE LEVEL 29 MEQ/L (21-32); CHLORIDE LEVEL 108 MEQ/L (98-107); CREATININE FOR GFR 0.61 MG/DL (0.55-1.02); GLOMERULAR FILTRATION RATE > 60.0 (>39); GLUCOSE, FASTING 91 MG/DL (83-110); POTASSIUM SERUM 3.8 MEQ/L (3.5-5.1); SODIUM LEVEL 144 MEQ/L (136-145)
[2016-11-25 07:21] VITALS: BP 131/73
[2016-11-25] MEDS: SYMBICORT 160/4.5MCG INHALER 6GM INH SCH ×2 (08:01→19:43)
[2016-11-25] MEDS: ASPIRIN 81 MG ENTERIC TAB PO SCH (08:37)
[2016-11-25] MEDS: DOCUSATE SODIUM 100 MG CAP PO SCH ×2 (08:38→22:10)
[2016-11-25] MEDS: PANTOPRAZOLE 40MG INJ (PROTONIX) (C9113) IV SCH (08:38)
[2016-11-25] MEDS: HEPARIN SOD (PORCINE) 5000 UNITS/ML VIAL SC SCH ×2 (08:38→22:09)
[2016-11-25] MEDS: SERTRALINE HCL 25 MG TABLET PO SCH (08:38)
[2016-11-25] MEDS: MOM 30ML SUSPENSION UDC PO SCH (08:38)
--- NOTE | 2016-11-25 09:24 | REP ---
TWO VIEW CHEST: Two views of the chest are performed and compared to prior study of 11/24/2016. Left chest tube is again noted. There is no evidence of a pneumothorax. Bibasilar pleural and parenchymal opacities are unchanged. The cardiomediastinal silhouette is unchanged. IMPRESSION: Stable exam. Signed by Alfred Acevedo MD 11/25/2016 02:32 P
[2016-11-25 12:00] VITALS: BP 140/71
--- NOTE | 2016-11-25 13:15 | IPN ---
DATE: 11/25/2016 This is now the third postoperative day for Mrs. Reed. She has had a stable 24 hours. Her pain is being well controlled with the epidural, which is now down to 4 mL/hr. Her vital signs show a T-max of 101.2; however, last night at 8 o'clock. She is now afebrile. Heart rate ranges between 67 and 84 in a sinus rhythm with a respiratory rate of 20 to 22 without the use of accessory muscles, who is 94% to 93% saturated on room air and whose blood pressure is ranging between 143/70 to 122/56. Her intake and output the past 24 hours has been recorded as 1380 in and 2710 out for a negativity of 1330 mL. She put out 185 mL from the chest tube and 35 mL in the last 12 hours. She weighs 70.3 kg today compared to 70.1 kg yesterday. On physical examination, her: Lungs: Show equal breath sounds on either side. I hear no wheezes, rhonchi or rales. Percussion note is full to the diaphragm. Cardiac Exam: Without murmurs, clicks, gallops, or rubs. I cannot feel her PMI. S1, S2 are normal. Abdomen: Soft. Nontender. Bowel sounds are positive. There is no hepatomegaly. There is no costovertebral angle (CVA) tenderness. She has already had a bowel movement. Show no pretibial edema and no calf tenderness. No differential swelling of the upper extremities. Skin: Warm, dry and perfused. Without cyanosis or mottling, including that of the nail beds and knees. Neck: Supple. There is no jugular venous distention. No subcutaneous emphysema. Trachea is midline. Mouth: Shows her mucous membranes to be pink and moist. Lips and commissures are without lesions. There is no thrush. Eyes: Show her pupils to be equal and reactive. Extraocular movements intact. Sclerae nonicteric. Neurologic: Shows II-XII intact along with gross motor and gross sensation intact. Gait is not tested. Psychiatric shows her to be awake, alert, and oriented times three with appropriate mood and affect and conversational. Her white count today is 4.8 with hemoglobin and hematocrit of 11.5 and 34.5, unchanged from yesterday, with a platelet count of 162 and stable. Differential shows 71% neutrophils, 16% lymphocytes, 5% monocytes. There are no immature forms and no toxic granulations. Electrolytes are normal today with a BUN and creatinine of 7 and 0.61, glucose 91, and a calcium of 8.1. Her chest x-ray shows her lung fully expanded to the chest wall. There is a blunting of the left costophrenic angle and the lateral film shows a small pleural effusion tracking up the posterior chest wall. I see no other infiltrates. IMPRESSION: 1. Postoperative day #3 status post left upper lobe wedge resection. 2. Adenocarcinoma, well differentiated, clinically T1a. 3. Chronic obstructive pulmonary disease. 4. Status post right lower lobe adenocarcinoma T2b, resected in 2013. 5. Status post adrenal metastases, treated with chemotherapy. 6. Anemia secondary to hemodilution, improving. 7. Prior tobacco abuse. PLAN AND DISCUSSION: I will discontinue her chest tubes today, open her epidural and discontinue her Pritchard catheter. If all goes well, will plan her for discharge in the morning. I asked pathology to further section the specimen up to where we saw the bronchiectasis and there was no additional tumor.
[2016-11-25 16:00] VITALS: BP 129/67
[2016-11-25] MEDS: FENTANYL/BUPIVACAINE/NACL CADD 250 ML EPIDURAL SCH (16:15)
[2016-11-25 20:00] VITALS: BP 139/65
[2016-11-26] VITALS: BP 159/83
[2016-11-26] MEDS: LEVALBUTEROL 1.25 MG/0.5 ML CONCENTRATE NEB NEB SCH ×2 (02:00→08:00)
[2016-11-26 04:00] VITALS: BP 152/77
[2016-11-26] MEDS: KETOROLAC 30 MG/ML VIAL (J1885) IV SCH ×2 (04:12→10:33)
[2016-11-26 05:16] LABS: BASO % 0.4 % (0.0-1.0); EOS # 0.2 K/mm3 (0.0-0.50); LARGE UNSTAINED CELL # 0.1 K/mm3 (0.0-0.4); LARGE UNSTAINED CELL % 1.9 % (0.0-4.0); LYMPH # 0.7 K/mm3 (1.5-4.5); LYMPH % 14.4 % (24.0-44.0); MEAN CORPUSCULAR HEMOGLOBIN 29.3 pg (27.0-33.0); MEAN CORPUSCULAR HGB CONC 33.8 g/dl (32.0-36.5); MEAN CORPUSCULAR VOLUME 86.6 fl (80.0-96.0); MONO # 0.3 K/mm3 (0.0-0.8); MONO % 6.4 % (0.0-5.0); NEUTROPHILS # 3.3 K/mm3 (1.8-7.7); NEUTROPHILS % 71.9 % (36.0-66.0); PLATELET COUNT, AUTOMATED 192 k/mm3 (150-450); RED CELL DISTRIBUTION WIDTH 12.5 % (11.5-14.5); WHITE BLOOD COUNT 4.6 K/mm3 (4.0-10.0)
[2016-11-26 05:34] LABS: ANION GAP 7 MEQ/L (8-16); BLOOD UREA NITROGEN 13 MG/DL (7-18); CALCIUM LEVEL 8.9 MG/DL (8.8-10.2); CARBON DIOXIDE LEVEL 28 MEQ/L (21-32); CHLORIDE LEVEL 107 MEQ/L (98-107); CREATININE FOR GFR 0.68 MG/DL (0.55-1.02); GLOMERULAR FILTRATION RATE > 60.0 (>39); GLUCOSE, FASTING 91 MG/DL (83-110); POTASSIUM SERUM 4.1 MEQ/L (3.5-5.1); SODIUM LEVEL 142 MEQ/L (136-145)
[2016-11-26 08:00] VITALS: BP 153/68
[2016-11-26] MEDS: SYMBICORT 160/4.5MCG INHALER 6GM INH SCH (08:09)
[2016-11-26] MEDS: PANTOPRAZOLE 40MG INJ (PROTONIX) (C9113) IV SCH (08:18)
[2016-11-26] MEDS: SERTRALINE HCL 25 MG TABLET PO SCH (08:19)
[2016-11-26] MEDS: DOCUSATE SODIUM 100 MG CAP PO SCH (08:19)
[2016-11-26] MEDS: HEPARIN SOD (PORCINE) 5000 UNITS/ML VIAL SC SCH (08:19)
[2016-11-26] MEDS: ASPIRIN 81 MG ENTERIC TAB PO SCH (08:19)
[2016-11-26] MEDS: MOM 30ML SUSPENSION UDC PO SCH (08:19)
[2016-11-26] MEDS ORDERED: FUROSEMIDE 40 MG TAB PO SCH (09:00)
[2016-11-26] MEDS ORDERED: POTA10CA PO (11:33)
[2016-11-26] MEDS ORDERED: FURO40TA2 PO (11:33)
[2016-11-26] MEDS ORDERED: POTASSIUM CHLORIDE 10 MEQ SR TABLET PO ONE (11:45)
[2016-11-26 12:00] VITALS: BP 127/70
--- NOTE | 2016-11-26 12:18 | REP ---
Chest x-ray: Two views. History: Status post left upper lobe wedge resection. Adenocarcinoma. Comparison chest x-ray November 25, 2016. Findings: In the interval since yesterday's chest x-ray, the patient's left chest tube has been removed. There is no visible pneumothorax on the frontal view, however, there is some pleural air collected anteriorly in the retrosternal space on the lateral radiograph indicating a small left-sided pneumothorax. This was not apparent on yesterday's film. There is slight blunting of the left pleural angles and right pleural angles as well. Hyperinflation of the lungs is seen overall. There are degenerative changes in the thoracic spine. No new infiltrate is seen. Post thoracotomy changes are noted on the right. The epidural catheter is no longer visible. Some soft tissue emphysema is seen along the left lateral chest wall. Impression: Small left-sided pneumothorax post left chest tube removal. Visible on lateral radiograph. Signed by Jose M Allen MD 11/26/2016 07:24 P
--- NOTE | 2016-11-26 19:19 | DSES ---
DATE OF ADMISSION: 11/22/2016 DATE OF DISCHARGE: 11/26/2016 DISCHARGE DIAGNOSES: 1. Postoperative day #4 status post left upper lobe wedge resection. 2. Adenocarcinoma, well differentiated, clinically T1a. 3. Chronic obstructive pulmonary disease. 4. Status post right lower lobe lobectomy for adenocarcinoma T2b resected in 2012. 5. Status post adrenal metastases treated with chemotherapy, resolved. 6. Anemia secondary to hemodilution, improved. 7. Prior tobacco abuse. HOSPITAL COURSE: The patient is a 76-year-old white female who underwent a right lower lobectomy in 2012, which had a dimension of 5.8 cm, without any nodes, making her stage 2A disease. She underwent adjuvant chemotherapy. Approximately 18 months after her chemotherapy, she was found to have bilateral adrenal masses, which were proven metastatic adenocarcinoma and she underwent another round of chemotherapy with resolution. She was then found to have a left upper lobe lesion. This was attempted to be biopsied but was unsuccessful. She was, therefore, taken to the operating room where she underwent a video-assisted thoracoscopic surgery (VATS) wedge resection of her left upper lobe. The tumor came back adenocarcinoma 2.5 cm in its largest dimension. The morphology of the tumor removed this time was morphologically different from the previous tumor, therefore, making this most likely a new primary. Her postoperative course was notable for her chest tube being unexpectedly pulled out the night of surgery where the chest tube had to be reinserted anteriorly. Other than that, she did well and was weaned from her oxygen. Her chest x-ray on discharge shows a small anterior pneumothorax on the lateral film without increase in subcutaneous emphysema that was seen since her surgery. She is on room air and breathing well. She does not complain of any pain. She does have some small bilateral pleural effusions. Her discharge white count is 4.6 with a hemoglobin and hematocrit of 12.1 and 35.7, which continues to increase. Her electrolytes are normal with a BUN and creatinine of 13 and 0.68. She is being discharged on her home medications which include Ventolin two puffs four times a day as needed for shortness of breath, aspirin 81 mg daily, Symbicort 164.5 two puffs twice a day, Nexium 40 mg daily, ibuprofen as needed for pain, and sertraline 25 mg by mouth daily. I am also sending her home on Lasix 40 mg daily for 7 days along with K-Dur 20 mEq daily. She will return to see me in 10 days in postoperative followup with a chest x-ray.
== END 2016-11-26 12:48 | disposition home or self-care (01) | DRG 264 ==
LOC: M OR 10:55 → M PCU 17:50 → M ICU 20:49
PROVIDERS: ADMIT Thoracic Surgery (Cardiothoracic Vascular Surgery); ATTEND Thoracic Surgery (Cardiothoracic Vascular Surgery)
PROC: 0BBG4ZX Excision of Left Upper Lung Lobe, Percutaneous Endoscopic Approach, Diagnostic (ICD-10-PCS; 2016-11-22)
PROC: 0BJ08ZZ Inspection of Tracheobronchial Tree, Via Natural or Artificial Opening Endoscopic (ICD-10-PCS; 2016-11-22)
PROC: 0W9B3ZZ Drainage of Left Pleural Cavity, Percutaneous Approach (ICD-10-PCS; 2016-11-22)
PROC: 0BNC4ZZ Release Right Upper Lung Lobe, Percutaneous Endoscopic Approach (ICD-10-PCS; principal; 2016-11-22 13:30)
DX: Z45.02 Encounter for adjustment and management of automatic implantable cardiac defibrillator (principal); J95.811 Postprocedural pneumothorax; C34.12 Malignant neoplasm of upper lobe, left bronchus or lung; J44.9 Chronic obstructive pulmonary disease, unspecified; Z87.891 Personal history of nicotine dependence; D64.9 Anemia, unspecified; Z90.2 Acquired absence of lung [part of]; T81.82XA Emphysema (subcutaneous) resulting from a procedure, initial encounter; Y83.6 Removal of other organ (partial) (total) as the cause of abnormal reaction of the patient, or of later complication, without mention of misadventure at the time of the procedure; Z92.21 Personal history of antineoplastic chemotherapy; Z85.858 Personal history of malignant neoplasm of other endocrine glands

== ENCOUNTER → 2016-12-08 | Outpatient (REF) | payer MEDICARE ==
[~2016-12-08] MED LIST changes: -BUPIVACAINE HCL 0.25% 30 ML VIAL As Ordered ONE; -BUPIVACAINE LIPOSOME/PF 1.3% 20ML (266MG/20ML) VIAL (EXPAREL) As Ordered ONE; +FURO40TA2 PO; +POTA10CA PO
== END | disposition home or self-care (01) ==
LOC: M LAB REF 09:00
PROVIDERS: ATTEND Internal Medicine Hematology & Oncology
DX: C34.12 Malignant neoplasm of upper lobe, left bronchus or lung (principal)

== ENCOUNTER → 2016-12-13 | Outpatient (CLI) | payer MEDICARE ==
--- NOTE | 2016-12-13 15:03 | REP ---
TWO VIEWS OF THE CHEST: The present study is compared to that of 11/26/2016. The small pneumothorax noted anteriorly left side is no longer discernible. In the interim, bilateral pleural effusions, particularly right side have cleared. There is slight cardiac enlargement. The aorta is tortuous. The remaining lungs, diaphragms and bony thorax are unremarkable for the age of the patient. There are skeletal changes, age-related. IMPRESSION: Complete resolution of the left pneumothorax and pleural effusions. Unreviewed
== END ==
LOC: M SMT 11:02
PROVIDERS: ATTEND Thoracic Surgery (Cardiothoracic Vascular Surgery)
DX: R91.1 Solitary pulmonary nodule (principal)

== ENCOUNTER → 2017-01-10 | Outpatient (CLI) | payer MEDICARE ==
[~2017-01-10] MED LIST changes: +SERT25TA PO; -SERT25TA85 PO
--- NOTE | 2017-01-10 11:32 | REP ---
Clinical: Pulmonary neoplasm. Technique: PA and lateral. Comparison: 12/13/2016. Findings: Mediastinum and cardiac silhouette are stable. Lung harrison demonstrate chronic stable interstitial changes. No acute consolidation, effusion, or pneumothorax. Blunting to the right diaphragmatic surface and costophrenic angle remains unchanged. Impression: Chronic stable changes. No acute cardiopulmonary process appreciated. Signed by Robby Winn MD 01/10/2017 11:23 A
== END ==
LOC: M SMT 10:56
PROVIDERS: ATTEND Thoracic Surgery (Cardiothoracic Vascular Surgery)
DX: C34.12 Malignant neoplasm of upper lobe, left bronchus or lung (principal)

== ENCOUNTER → 2024-07-13 | Outpatient (CLI) | payer MEDICARE ==
[~2024-07-13] MED LIST changes: -ASPI81TA85 PO; +ASPI81TA86 PO; -IBUP200C PO; +IBUP200C25 PO; -LORA1TAB12 PO; +LORA1TAB23 PO; +OXYC1TAB23 PO; -PERCOCET PO; +POTA-136 PO; -POTA10CA PO; -SERT25TA PO; +SERT25TA85 PO
== END ==
LOC: M PLAIMG 12:13
PROVIDERS: ATTEND Internal Medicine Pulmonary Disease
DX: J43.1 Panlobular emphysema (principal)